=== PATIENT | female | born 1995 | race African-American/Black ===

== ENCOUNTER 2024-01-05 16:26 | Emergency (ER) | payer OTHER, SELFPAY ==
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
[2024-01-05 16:39] VITALS: BP 132/86; PULSE 982; O2SAT 97
[2024-01-05 16:59] VITALS: BP 103/65; BP 130/80; PULSE 66; PULSE 90; RESP 18; TEMP 36.5; O2SAT 97; O2SAT 99; BMI 24.7
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
--- OUTSIDE RECORDS SUMMARY | 2024-01-05 17:41 | XMS_ITS | Continuity of Care Document ---
Author Organization [facility] Address [address] [place] [address]- Care Team Providers Care Digital Marketing Associate Name Role Phone Kee MICHAEL, [facility] Primary Care Physician [facility]counter [facility] Date(s): 07/09/23 - 08/08/23 [facility] [address] [place] [id number]- Allergies, Adverse Reactions, Alerts Substance Reaction Severity Status shellfish Active Immunizations Given and Recorded Vaccine Date Status Refusal Reason influenza virus vaccine, inactivated 07/29/21 Gael rded SARS-CoV-2 (COVID-19) mRNA-1273 vaccine 01/31/21 R ecorded SARS-CoV-2 (COVID-19) mRNA-1273 vaccine 01/03/21 R ecorded tetanus/diphtheria/pertussis, acel(Tdap) 1 11/27/17 Given 1Early/Late Reason: Other : CNM wanted pt to have vaccine after del Medications buPROPion 150 mg/24 hours (XL) oral tablet, extended release 1 tablet, By Mouth, Every 24 hours, # 30 tablet, 0 Refills, Maintenance, 11/20/22 17:03:00 EDT, [id number], 30, TAKE 1 TABLET BY MOUTH EVERY 24 HOURS FOR 30 DAYS, 155.4, cm, 10/28/22 15:29:00 EDT, Height Start Date: 11/20/22 Stop Date: 12/20/22 Status: Ordered ibuprofen 600 mg oral tablet 1, tablet, By Mouth, Every 8 hours, PRN, MODERATE PAIN., # 30 tablet, Refills 1, Maintenance, NEEDED, 07/09/23 12:25:00 EST, Route to Pharmacy Electronically, [id number], 155, cm, 03/23/23 10:56:00 EDT, Height, 63.7, kg, 03/23/23 11:03:00 EDT,... Start Date: 07/09/23 Stop Date: 07/19/23 Status: Ordered 06/28 oral tablet 1 tablet, By Mouth, Daily, # 28 tablet, 0 Refills, Maintenance, 09/24/21 10:03:00 EDT, Tablet, Partial fill upon patient request if the prescription is for a schedule II opioid drug. Start Date: 09/24/21 Status: Ordered Problem List Condition Confirmation Course Effective Dates Status Health St atus Informant Anxiety Confirmed Active Cardiac murmur Confirmed Active Migraine Confirmed Active PMS (premenstrual syndrome) Confirmed Active Social History Social History Type Response Smoking Status Never smoker entered on: 11/23/17 Sex Female Patient Care team information Care Team Personnel Name: Kee MICHAEL, Hailey Position: S Physician - Primary Care Member Role: PCP Address: Address: [address] [place] [address] [address] [place], [place] [address] Care Team Related Persons Name: SHEREE HOOKER Address: home [address] [place] [address] Name: TASIA HOOKER Address: home [address] [place] [address] Name: TAZ PRADO Address: Address: [address] [place] [address]
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
--- OUTSIDE RECORDS SUMMARY | 2024-01-05 17:41 | XMS_ITS | Continuity of Care Document ---
Author Organization [facility] ter Address [address] [place] [address]- Care Team Providers Care Data Communications Analyst Name Role Phone Kee MICHAEL, Hailey Primary Care Physician ( [phone] Encounter [facility] Date(s): 02/18/22 - 02/19/[address] [address]- Encounter Diagnosis Neck muscle strain(Final) - 02/19/22 Discharge Disposition: A-D/C Home Attending Physician: Wilman MICHAEL, Marge Melara Admitting Physician: aMrge Stovall MD Referring Physician: Not on Staff, Referring MD Allergies, Adverse Reactions, Alerts Substance Reaction Severity Status shellfish Active Immunizations Given and Recorded Vaccine Date Status Refusal Reason influenza virus vaccine, inactivated 07/29/21 Gael rded SARS-CoV-2 (COVID-19) mRNA-1273 vaccine 01/31/21 R ecorded SARS-CoV-2 (COVID-19) mRNA-1273 vaccine 01/03/21 R ecorded tetanus/diphtheria/pertussis, acel(Tdap) 1 11/27/17 Given 1Early/Late Reason: Other : CNM wanted pt to have vaccine after del Medications 06/28 oral tablet 1 tablet, By Mouth, Daily, # 28 tablet, 0 Refills, Maintenance, 09/24/21 10:03:00 EDT, Tablet, Partial fill upon patient request if the prescription is for a schedule II opioid drug. Start Date: 09/24/21 Status: Ordered lidocaine 5% topical film 1 patch, Topically, Daily, PRN Pain , Mild, remove after 12 hours, # 13 each, 0 Refills, Acute 06/08/22 1:07:00 EST, 02/19/22 1:06:00 EDT, Film, [id number], Partial fill upon patient request if the prescription is for a schedule II opioid drug... Start Date: 02/19/22 Stop Date: 06/08/22 Status: Ordered Problem List Condition Effective Dates Status Health Status Inform ant Anxiety(Confirmed) Active Cardiac murmur(Confirmed) Active Migraine(Confirmed) Active PMS (premenstrual syndrome)(Confirmed) Active Vital Signs Most recent to oldest [Reference Range]: 1 2 3 Oxygen Saturation [94-100 %] 98 % (02/19/22 12:17 AM) 100 % (02/18/22 10:27 PM) 100 % (02/18/22 7:04 PM) Pulse Rate [55-90 bpm] 62 bpm (02/19/22 12:17 AM) 69 bpm (02/18/22 10:27 PM) 64 bpm (02/18/22 7:04 PM) Blood Pressure [90-138/55-84 mm Hg] 109/61mm Hg (02/19/22 12:17 AM) 127/72mm Hg (02/18/22 10:27 PM) 127/74mm Hg (02/18/22 7:04 PM) Respiratory Rate [16-30 br/min] 16 br/min (02/19/22 12:17 AM) 18 br/min (02/18/22 10:27 PM) 20 br/min (02/18/22 1:16 PM) Temperature [96.8-100.4 DegF] 98.6 DegF (02/19/22 12:17 AM) 98.2 DegF (02/18/22 10:27 PM) 98.4 DegF (02/18/22 7:04 PM) Mode of Delivery (Oxygen) Room air (02/19/22 12:17 AM) Room air (02/18/22 10:27 PM) Room air (02/18/22 7:04 PM) Blood pressure sites Arm, right (02/19/22 12:17 AM) Arm, right (02/18/22 10:27 PM) Arm, left (02/18/22 7:04 PM) Temperature Route Oral (02/18/22 10:27 PM) Oral (02/18/22 7:04 PM) Oral (02/18/22 5:57 PM) Social History Social History Type Response Smoking Status Never smoker entered on: 11/23/17 Sex Female Care Team Personnel Name: Hailey Sweet MD Address: [address] [place] [address] [address] [place], [place] [address]
--- OUTSIDE RECORDS SUMMARY | 2024-01-05 17:41 | XMS_ITS | Continuity of Care Document ---
Author Organization [facility] ter Address [address] [place] [address]- Care Team Providers Care Renovation Plant Supervisor Name Role Phone Kee MICHAEL, [facility] Primary Care Physician ( [phone] Encounter [facility] Date(s): 02/18/22 - 02/18/[address] [address]- Discharge Disposition: A-D/C Walkout Attending Physician: Not on Staff, Attending MD Admitting Physician: Not on Staff, Admitting MD Referring Physician: Not on Staff, Referring [...] 1:07:00 EST, 02/19/22 1:06:00 EDT, Film, [id number], Partial fill upon patient request if the prescription is for a schedule II opioid drug... Start Date: 02/19/22 Stop Date: 06/08/22 Status: Ordered Problem List Condition Effective Dates Status Health Status Inform ant Anxiety(Confirmed) Active Cardiac murmur(Confirmed) Active Migraine(Confirmed) Active PMS (premenstrual syndrome)(Confirmed) Active Vital Signs Most recent to oldest [Reference Range]: 1 Oxygen Saturation [94-100 %] 100 % (02/18/22 11:07 AM) Pulse Rate [55-90 bpm] 105 bpm *H* (02/18/22 11:07 AM) Mode of Delivery (Oxygen) Room air (02/18/22 11:07 AM) Social History Social History Type Response Smoking Status Never smoker entered on: 11/23/17 Sex Female Care Team Personnel Name: Kee MICHAEL [facility] Address: [address] [place] [address] [address] [place], [place] [address]
--- OUTSIDE RECORDS SUMMARY | 2024-01-05 17:41 | XMS_ITS | Continuity of Care Document ---
Author Organization [facility] Adult Address [address] [place] [address]- Care Team Providers Care Sheet Metal Smith Name Role Phone Kee MICHAEL, Hailey Primary Care Physician ( [phone] Encounter [facility] Date(s): 10/11/22 - 10/18/[address] [address]- Encounter Diagnosis Annual physical exam(Discharge Diagnosis) - 10/11/22 Mild depression(Discharge Diagnosis) - 10/11/22 Attending Physician: Hailey Sweet MD Allergies, Adverse Reactions, Alerts Substance Reaction Severity Status shellfish Active Immunizations Given and Recorded Vaccine Date Status Refusal Reason influenza virus vaccine, inactivated 07/29/21 Gael rded SARS-CoV-2 (COVID-19) mRNA-1273 vaccine 01/31/21 R ecorded SARS-CoV-2 (COVID-19) mRNA-1273 vaccine 01/03/21 R ecorded tetanus/diphtheria/pertussis, acel(Tdap) 1 11/27/17 Given 1Early/Late Reason: Other : CNM wanted pt to have vaccine after del Medications ibuprofen 600 mg oral tablet 600 mg, 1, tablet, By Mouth, Every 8 hours, PRN, for 10 days, # 30 tablet, Refills 1, Tot. Refills 1, Acute 10/31/22 10:50:00 EDT, Pain , Moderate, 10/11/22 10:50:00 EDT, Route to Pharmacy Electronically, [facility]/pharmacy #[id number], Partial fill upon patient... Start Date: 10/11/22 Stop Date: 10/31/22 Status: Ordered 06/28 oral tablet 1 tablet, [...] Diagnosis Diagnosis Type Effective Dates Health Status Clinical Service Informant Annual physical exam Discharge Diagnosis 10/11/22 Mild depression Discharge Diagnosis 10/11/22 Vital Signs Most recent to oldest [Reference Range]: 1 Height 155.4 cm (10/11/22 10:16 AM) Weight 61.2 kg (10/11/22 10:16 AM) Oxygen Saturation [94-100 %] 99 % (10/11/22 10:16 AM) Pulse Rate [55-90 bpm] 84 bpm (10/11/22 10:16 AM) Body Mass Index [18.5-24.99 kg/m2] 25.34 kg/m2 *H* (10/11/22 10:16 AM) Blood Pressure [90-138/55-84 mm Hg] 96/6 4mm Hg (10/11/22 10:16 AM) Temperature [96.8-100.4 DegF] 97.6 DegF (10/11/22 10:16 AM) Mode of Delivery (Oxygen) Room air (10/11/22 10:16 AM) Blood pressure sites Arm, left (10/11/22 10:16 AM) Temperature Route Temporal (10/11/22 10:16 AM) Weight Obtained Via Standing scale (10/11/22 10:16 AM) Social History Social History Type Response Smoking Status Never smoker entered on: 11/23/17 Sex Female Note * Mabel Shepard: PERFORM, SIGN, VERIFY Event Display: Patient Education/Instruction Authored Date: [id number] [facility] *[facility] Clinical Summary Name MYRA COATES Age 26 Years 1995 PCP Hailey Sweet MD PCP Visit Date 10/11/2022 10:07:00 Additional Instructions: Scheduled Appointments?? Future Appointments ?No Future Appointments Scheduled Follow-Up Instructions ?? With: Address: When: Hailey Sweet [address] Floor, [place] [address] Business (1) Within 1 year Comments: physical Diagnosis Anxiety disorder, unspecified; Migraine, unspecified, not intractable, without status migrainosus; Premenstrual tension syndrome; Encounter for general adult medical examination without abnormal findings; Depression, unspecified Medications: Please continue your medications until treatment is completed or stopped by your provider. Discuss any questions related to medications with your provider. New Medications [facility]/pharmacy #[id number], [address] [place], [place] [phone], [phone] Ibuprofen (ibuprofen 600 mg oral tablet) 1 tab(s) Oral every 8 hours as needed Pain , Moderate for 10 Days. Refills: 1. Next Dose: Medications to Continue with No Changes These medications were not printed or sent to your pharmacy Ethinyl Estradiol / Norethindrone (06/28 oral tablet) 1 tab(s) Oral Daily. Next Dose: Allergy Info:?? shellfish Medications Given This Visit Future Orders ?Lipid Panel? Order Date:10/11/22?- Complete by?10/11/22 ?Hepatic Function Panel? Order Date:10/11/22?- Complete by?10/11/22 ?Basic Metabolic Panel? Order Date:10/11/22?- Complete by?10/11/22 ?TSH with T4 Reflex (Adults Only)? Order Date:10/11/22?- Complete by?10/11/22 ?CBC w/ Differential? Order Date:10/11/22?- Complete by?10/11/22 ?Urinalysis (Outpt)? Order Date:10/11/22?- Complete by?10/11/22 Vital Signs Height 155.4 cm Weight 61.2 kg BMI 25.34 kg/m2 Blood Pressure 96 mm Hg/64 mm Hg Temperature 97.6 DegF Pulse Rate 84 bpm Respiratory Rate 02 Sat Mode of Delivery 99 %/Room air You can now view a summary of your hospital visit from the comfort of your home through a free online portal called [employer]. [employer] is a website that allows you to securely view your medical information including discharge summary, medications and follow-up visits. ??You can alsosend a secure electronic message to your doctor???s office to request appointments, renew medications or just ask a question. You can enroll at [email or web address] or register during your next office visit. Disclaimer:?? The information provided is of a general nature and is intended to be used in conjunction with the recommendations and advice of your health care practitioner. ??Every effort has been made to ensure that the information provided is accurate and complete at the time it is provided to you however, as your needs change, or, as new ??information becomes available, different or additional instructions may be required. If you have questions, please consult with your primary care provider or pharmacist, as appropriate. ??This information is not intended to serve as substitution for assessment and evaluation by a qualified health care provider. If you do not have a primary care provider, you may find a [facility] provider by calling [facility] Link at [phone]. For information about the plan of care including goals and instructions for your diagnosis, please see the patient education orders section of this document. Patient Education Materials?? The content of this educational material or handout may have been modified, supplemented, or adapted from its original content and format to support your individualized medical care. Patient Care team information Care Team Personnel Name: Chastity Moran LPN Position: [facility] OB RN Member Role: Primary Care Nurse Name: Hailey Sweet MD Position: [facility] Primary Care Physician Member Role: PCP Address: Address: [address] [place] [address] [address]rd [address] [place], [place] [address] Care Team Related Persons Name: HOOKERSHEREE Address: home [address] [place] [address] Name: TASIA HOOKER Address: home [address] [place] [address] Name: TZA PRADO Address: Address: home [address] [place] [address]
--- OUTSIDE RECORDS SUMMARY | 2024-01-05 17:41 | XMS_ITS | Continuity of Care Document ---
Author Organization [facility] Adult Address [address] [place] [address]- Care Team Providers Care Night Monitor Name Role Phone Kee MICHAEL, Hailey Primary Care Physician ( [phone] Encounter [facility] Date(s): 11/29/22 - 12/29/[address] [address]- Attending Physician: Linda Flores Admitting Physician: AdmLinda bae Referring Physician: Admtr, Linda Allergies, Adverse Reactions, Alerts Substance Reaction Severity [...] 0 Refills, Maintenance, 11/20/22 17:03:00 EDT, [id number], 30, TAKE 1 TABLET BY MOUTH EVERY 24 HOURS FOR 30 DAYS, 155.4, cm, 10/28/22 15:29:00 EDT, Height Start Date: 11/20/22 Stop Date: 12/20/22 Status: Ordered June06/28 oral tablet 1 tablet, By Mouth, Daily, [...] Team Personnel Name: Chastity Moran LPN Position: [facility] OB RN Member Role: Primary Care Nurse Name: Hailey Sweet MD Position: [facility] Physician - Primary Care Member Role: PCP Address: Address: [address] [place] [address] Care Team Related Persons Name: SHEREE HOOKER Address: home [address] [place] [address] Name: TASIA HOOKER Address: home [address] [place] [address] Name: TAZ PRADO Address: Address: [address] [address] [place]
--- OUTSIDE RECORDS SUMMARY | 2024-01-05 17:41 | XMS_ITS | Continuity of Care Document ---
Author Organization [facility] Adult Address [address] [place] [address]- Care Team Providers Care Photographer Portrait Name Role Phone Kee MICHAEL, [facility] Primary Care Physician Encounter [facility] Date(s): 11/28/21 - 12/28/21 [facility] Adult [address] [place] [address]- Allergies, Adverse Reactions, Alerts Substance Reaction Severity [...] Date: 09/24/21 Status: Ordered Problem List Condition Effective Dates Status Health Status Inform ant Anxiety(Confirmed) Active Cardiac murmur(Confirmed) Active Migraine(Confirmed) Active PMS (premenstrual syndrome)(Confirmed) Active Social History Social History Type Response Smoking Status Never smoker entered on: 11/23/17 Sex Female
--- OUTSIDE RECORDS SUMMARY | 2024-01-05 17:41 | XMS_ITS | Continuity of Care Document ---
Author Organization [facility] Address [address] [place] [address]- Care Team Providers Care Corporate Strategist Name Role Phone Not on Staff, PCP Primary Care Physician Unavail able [place] [facility] Date(s[place] 05/28/20 - 05/28/[address] [address]- Encounter Diagnosis Syncope(Final) - 05/28/20 Discharge Disposition: A-D/C Home Attending Physician: Christopher Swanson DO Admitting Physician: Christopher Swanson DO Referring Physician: Not on Staff, Referring MD Allergies, Adverse Reactions, Alerts Substance Reaction Severity Status shellfish Active Immunizations Given and Recorded Vaccine Date Status Refusal Reason tetanus/diphtheria/pertussis, acel(Tdap) 1 11/27/17 Given 1Early/Late Reason: Other : CNM wanted pt to have vaccine after del Medications Multivitamin Tablet 1 tablet, By Mouth, Daily, 0 Refills, Maintenance, 07/09/17 15:34:03 Start Date: 07/09/17 Status: Ordered Zofran 4 mg oral tablet 1 tablet = 4 mg, By Mouth, Every 8 hours, 0 Refills, Maintenance, 07/09/17 15:33:18 Start Date: 07/09/17 Status: Ordered Problem List Condition Effective Dates Status Health Status Inform ant Anxiety(Confirmed) Active Vital Signs Most recent to oldest [Reference Range]: 1 2 3 Oxygen Saturation [94-100 %] 100 % (05/28/20 3:17 PM) 100 % (05/28/20 1:28 PM) 98 % (05/28/20 1:11 PM) Pulse Rate [55-90 bpm] 64 bpm (05/28/20 3:17 PM) 55 bpm (05/28/20 1:28 PM) 76 bpm (05/28/20 1:11 PM) Blood Pressure [90-138/55-84 mm Hg] 96/44mm Hg (05/28/20 3:17 PM) 96/62mm Hg (05/28/20 1:28 PM) 96/62mm Hg (05/28/20 1:11 PM) Respiratory Rate [16-30 br/min] 16 br/min (05/28/20 3:17 PM) 14 br/min *L* (05/28/20 1:28 PM) 16 br/min (05/28/20 1:11 PM) Temperature [96.8-100.4 DegF] 98.2 DegF (05/28/20 1:11 PM) 98.1 DegF (05/28/20 12:59 PM) Mode of Delivery (Oxygen) Room air (05/28/20 3:17 PM) Room air (05/28/20 1:28 PM) Room air (05/28/20 1:11 PM) Blood pressure sites Arm, left (05/28/20 3:17 PM) Arm, left (05/28/20 1:28 PM) Arm, left (05/28/20 1:11 PM) Temperature Route Oral (05/28/20 12:59 PM) Social History Social History Type Response Smoking Status Never smoker entered on: 11/23/17 Sex
--- OUTSIDE RECORDS SUMMARY | 2024-01-05 17:41 | XMS_ITS | Continuity of Care Document ---
Author Organization [facility] Adult Address [address] [place] [address]- Care Team Providers Care Mathematics Professor Name Role Phone Hailey Sweet MD Primary Care Physician ( [phone] Encounter [facility] Date(s): 09/17/23 - 09/24/[address] [address]- Encounter Diagnosis YOLY (generalized anxiety disorder)(Discharge Diagnosis) - 09/17/23 Attending Physician: Hailey Sweet MD Referring Physician: Pilar Da Silva NP Allergies, Adverse Reactions, Alerts Substance Reaction Severity [...] Medications hydrOXYzine pamoate 25 mg oral capsule 1 capsule = 25 mg, By Mouth, 4 times a day, PRN for anxiety, for 14 days, May cause drowsiness, # 56 capsule, 0 Refills, Acute 10/01/23 14:07:00 EDT, 09/17/23 14:07:00 EDT, Capsule, [id number], Partial fill upon patient request if the prescrip... Start Date: 09/17/23 Stop Date: 10/01/23 Status: Ordered ibuprofen 600 mg oral tablet 1, tablet, By Mouth, Every 8 hours, PRN, MODERATE PAIN., # 30 tablet, Refills 1, Maintenance, NEEDED, 07/09/23 12:25:00 EST, Route to Pharmacy Electronically, [id number], 155, cm, 03/23/23 10:56:00 EDT, Height, 63.7, kg, 03/23/23 11:03:00 EDT,... Start Date: 07/09/23 Stop Date: 07/19/23 Status: Ordered Problem List Condition Confirmation Course Effective Dates Status Health St atus Informant Anxiety Confirmed Active Cardiac murmur Confirmed Active Migraine Confirmed Active PMS (premenstrual syndrome) Confirmed Active Diagnosis Diagnosis Type Effective Dates Health Status Cl inical Service Informant YOLY (generalized anxiety disorder) Discharge Diagnosis 09/17/23 Vital Signs Most recent to oldest [Reference Range]: 1 Height 155 cm (09/17/23 1:43 PM) Weight 64.1 kg (09/17/23 1:43 PM) Oxygen Saturation [94-100 %] 100 % (09/17/23 1:43 PM) Pulse Rate [55-90 bpm] 62 bpm (09/17/23 1:43 PM) Body Mass Index [18.5-24.99 kg/m2] 26.68 kg/m2 *H* (09/17/23 1:43 PM) Blood Pressure [90-138/55-84 mm Hg] 106/ 70mm Hg (09/17/23 1:43 PM) Mode of Delivery (Oxygen) Room air (09/17/23 1:43 PM) Blood pressure sites Arm, left (09/17/23 1:43 PM) Weight Obtained Via Standing scale (09/17/23 1:43 PM) Social History Social History Type Response Smoking Status Never smoker entered on: 11/23/17 Sex Female Note * Jennifer Bishop: PERFORM, SIGN, VERIFY Event Display: Patient Education/Instruction Authored Date: [id number] [facility] *[facility] Clinical Summary Name MYRA COATES Age 27 Years 1995 PCP Hailey Sweet MD PCP Visit Date 09/17/2023 13:42:00 Additional Instructions: Scheduled Appointments?? Future Appointments ?*[facility] ?[address],??[address] ?Phone:??[phone]?Fax:??-- ?Appt. Date:??11/12/2023?11:10 AM ?Scheduled Provider:??Hailey Sweet MD Follow-Up Instructions ?? With: Address: When: Hailey Sweet MD Diagnosis Generalized anxiety disorder Medications: Please continue your medications until treatment is completed or stopped by your provider. Discuss any questions related to medications with your provider. New Medications [facility]/pharmacy #[id number], [address] [place], [place] [phone], [phone] HydrOXYzine (hydrOXYzine pamoate 25 mg oral capsule) 1 capsule Oral 4 times a day as needed for anxiety for 14 Days. May cause drowsiness. Refills: 0. Next Dose: Medications to Continue with No Changes These medications were not printed or sent to your pharmacy Ibuprofen (ibuprofen 600 mg oral tablet) 1 tab(s) Oral every 8 hours as needed for 10 Days. MODERATE PAIN.. Refills: 1. Next Dose: No Longer Take the Following Medications BuPROpion (buPROPion 150 mg/24 hours (XL) oral tablet, extended release) 1 tab(s) Oral every 24 hours for 30 Days. Refills: 0. Ethinyl Estradiol / Norethindrone (06/28 oral tablet) 1 tab(s) Oral Daily. Allergy Info:?? shellfish Medications Given This Visit Future Orders ?No future orders Future Orders ?No future orders Vital Signs Height 155 cm Weight 64.1 kg BMI 26.68 kg/m2 Blood Pressure 106 mm Hg/70 mm Hg Temperature Pulse Rate 62 bpm Respiratory Rate 02 Sat Mode of Delivery 100 %/Room air You can now view a summary of your hospital visit from the comfort of your home through a free online portal called [employer]. [employer] is a website that allows you to securely view your medical information including discharge summary, medications and follow-up visits. ??You can alsosend a secure electronic message to your doctor???s office to request appointments, renew medications or just ask a question. You can enroll at [email or web address] or register during your next office visit. [...] primary care provider, you may find a [facility] provider by calling [facility] Link at [phone]. [facility], in keeping with [facility] guidance, no longer requires face masks for staff, patientsor visitors in most situations. Similar to time spent indoors at other locations, there is the chance that you were exposed to respiratory viruses during your time with us (such as flu or COVID-19).? If you develop symptoms concerning for a viral respiratory infection, please seek testing (and treatment if indicated) from your medical provider or home test kit. For information about the plan of care [...] Team Personnel Name: Hailey Sweet MD Position: S Physician - Primary Care Member Role: PCP Address: Address: [address] Care Team Related Persons Name: SHEREE HOOKER Address: home [address] [place] [address] Name: TASIA HOOKER Address: home [address] [place] [address] Name: TAZ PRADO Address: Address: home [address] [place] [address]
--- OUTSIDE RECORDS SUMMARY | 2024-01-05 17:41 | XMS_ITS | Continuity of Care Document ---
Author Organization [facility] Adult Address [address] [place] [address]- Care Team Providers Care Diamond Sawer Name Role Phone Kee MICHAEL, Hailey Primary Care Physician En[place] [facility] [place] Date(s): 09/17/23 - 10/17/[address] [address]- Attending Physician: Linda Flores Admitting Physician: Linda Flores Referring Physician: Linda Flores Allergies, Adverse Reactions, Alerts Substance Reaction Severity [...] del Medications ibuprofen 600 mg oral tablet 1, tablet, By Mouth, Every 8 hours, PRN, MODERATE PAIN., # 30 tablet, Refills 1, Maintenance, NEEDED, 07/09/23 12:25:00 EST, Route to Pharmacy Electronically, [facility], 155, cm, 03/23/23 10:56:00 EDT, Height, 63.7, [...] Care Member Role: PCP Address: Address: [address] [place] [address] [address] Care Team Related Persons Name: SHEREE HOOKER Address: home [address] [place] [address] Name: TASIA HOOKER Address: home [address] [place] [address] Name: TAZ PRADO Address: Address: [address]
--- OUTSIDE RECORDS SUMMARY | 2024-01-05 17:41 | XMS_ITS | Continuity of Care Document ---
Author Organization [facility] Adult Address [address] [place] [address]- Care Team Providers Care Mechanical Assembly Technician Name Role Phone Kee MICHAEL, [facility] Primary Care Physician Encounter [facility] Date(s): 11/28/21 - 12/28/21 [facility] Adult [address] [place] [address]- Allergies, Adverse Reactions, Alerts Substance Reaction Severity [...]
--- OUTSIDE RECORDS SUMMARY | 2024-01-05 17:41 | XMS_ITS | Continuity of Care Document ---
Author Organization [facility] Adult Address [address] [place] [address]- Care Team Providers Care Tour Coordinator Name Role Phone Kee MICHAEL, [facility] Primary Care Physician ( [phone] Encounter [facility] Date(s): 09/24/21 - 10/01/[address] [facility] Adult [address] [place] [address]- Encounter Diagnosis Migraine(Discharge Diagnosis) - 09/24/21 Cardiac murmur(Discharge Diagnosis) - 09/24/21 Annual physical exam(Discharge Diagnosis) - 09/24/21 PMS (premenstrual syndrome)(Discharge Diagnosis) - 09/24/21 Attending Physician: [facility]ee [facility] Allergies, Adverse Reactions, Alerts Substance Reaction Severity [...] opioid drug. Start Date: 09/24/21 Status: Ordered SUMAtriptan 25 mg oral tablet 1 tablet = 25 mg, By Mouth, Daily, PRN for migraine headache, may repeat dose after 2 hours up to amaximum of 2, # 9 tablet, 0 Refills, Acute 10/24/21 10:25:00 EDT, 09/24/21 10:25:00 EDT, Tablet, [id number], [facility] fill upon patient request... Start Date: 09/24/21 Stop Date: 10/24/21 Status: Ordered Problem List Condition Effective Dates Status Health Status Inform ant Anxiety(Confirmed) Active Cardiac murmur(Confirmed) Active Migraine(Confirmed) Active PMS (premenstrual syndrome)(Confirmed) Active Diagnosis Diagnosis Type Effective Dates Health Status Cl inical Service Informant Migraine Discharge Diagnosis 09/24/21 Cardiac murmur Discharge Diagnosis 09/24/21 Annual physical exam Discharge Diagnosis 09/24/21 PMS (premenstrual syndrome) Discharge Diagnosis 09/24/21 Procedures Procedure Date Related Diagnosis Body Site Status Vaginal delivery Complete d Vital Signs Most recent to oldest [Reference Range]: 1 2 Height 155.4 cm (09/25/21 10:20 AM) 155.4 cm (09/24/21 9:37 AM) Weight 59.6 kg (09/25/21 10:20 AM) 59.6 kg (09/24/21 9:37 AM) Oxygen Saturation [94-100 %] 99 % (09/24/21 9:37 AM) Pulse Rate [55-90 bpm] 63 bpm (09/24/21 9:37 AM) Body Mass Index [18.5-24.99] 24.68 (09/24/21 9:37 AM) Blood Pressure [90-138/55-84 mm Hg] 98/6 2mm Hg (09/24/21 9:37 AM) Temperature [96.8-100.4 DegF] 98.5 DegF (09/24/21 9:37 AM) Mode of Delivery (Oxygen) Room air (09/24/21 9:37 AM) Blood pressure sites Arm, left (09/24/21 9:37 AM) Temperature Route Oral (09/24/21 9:37 AM) Weight Obtained Via Standing scale (09/24/21 9:37 AM) Social History Social History Type Response Smoking Status Never smoker entered on: 11/23/17 Sex Female
--- OUTSIDE RECORDS SUMMARY | 2024-01-05 17:42 | XMS_ITS | Continuity of Care Document ---
Author Organization [facility] Adult Address [address] [place] [address]- Care Team Providers Care Superintendent Refuse Disposal Name Role Phone Hailey Sweet MD Primary Care Physician [place] [facility] [place] [place]13[place]23 [place] 12/13/23 [facility] Adult [address] [place] [address]- Attending Physician: Linda Flores Admitting Physician: Linda Flores Referring Physician: AdmLinda bae Allergies, Adverse Reactions, Alerts Substance Reaction Severity [...] 07/09/23 12:25:00 EST, Route to Pharmacy Electronically, [id number], 155, cm, 03/23/23 10:56:00 EDT, Height, 63.7, [...] Team Personnel Name: Hailey Sweet MD Position: [facility] Physician - Primary Care Member Role: PCP Address: Address: [address] [place] [address] [address]rd [address] [place], [place] [address] Care Team Related Persons Name: SHEREE HOOKER Address: home [address] [place] [address] Name: TASIA HOOKER Address: home [address] [place] [address] Name: TAZ PRADO Address: Address: home [address] [place] [address] [place]
--- OUTSIDE RECORDS SUMMARY | 2024-01-05 17:42 | XMS_ITS | Continuity of Care Document ---
Author Organization [facility] [place] Adult Address [address] [place] [address]- Care Team Providers Care Skin Peeling Machine Operator Name Role Phone Hailey Sweet MD Primary Care Physician ( [phone] Encounter [facility] [place] [place] Date(s): 10/24/22 - 12/29/[address] [address]- Attending Physician: Hailey Sweet MD Allergies, Adverse [...] 0 Refills, Maintenance, 11/20/22 17:03:00 EDT, [facility], 30, TAKE 1 TABLET BY MOUTH EVERY 24 HOURS FOR 30 DAYS, 155.4, cm, 10/28/22 15:29:00 EDT, Height Start Date: 11/20/22 Stop Date: 12/20/22 Status: Ordered 06/28 oral tablet 1 tablet, [...] Team Personnel Name: Chastity Moran LPN Position: [facility] OB RN Member Role: Primary Care Nurse Name: Hailey Sweet MD Position: [facility] Physician - Primary Care Member Role: PCP Address: Address: [address] [place] [address] Care Team Related Persons Name: SHEREE HOOKER Address: home [address] [place] [address] Name: TASIA HOOKER Address: home [address] [place] [address] Name: TAZ PRADO Address: Address: home [address] [place] [address]
--- OUTSIDE RECORDS SUMMARY | 2024-01-05 17:42 | XMS_ITS | Continuity of Care Document ---
Author Organization [facility] Adult Address [address] [place] [address]- Care Team Providers Care Cascara Bark Cutter Name Role Phone Not on Staff, PCP Primary Care Physician Unavail able Encounter [facility] Date(s): 06/26/21 - 07/26/21 [facility] [address] [place] [address]- Allergies, Adverse Reactions, Alerts Substance Reaction Severity [...] Status Health Status Inform ant Anxiety(Confirmed) Active Social History Social History Type Response Smoking Status Never smoker entered on: 11/23/17 Sex Female
--- OUTSIDE RECORDS SUMMARY | 2024-01-05 17:42 | XMS_ITS | Continuity of Care Document ---
Author Organization [facility] ter Address [address] [place] [address]- Care Team Providers Care Road Patcher Name Role Phone Not on Staff, PCP Primary Care Physician Unavail able Encounter [facility] [place] Date(s): 01/15/20 - 01/15/[address] [address]- [facility] Encounter Diagnosis Syncope(Final) - 01/15/20 Discharge Disposition: A-D/C Home Attending Physician: Christopher [...] recent to oldest [Reference Range]: 1 2 Oxygen Saturation [94-100 %] 99 % (01/15/20 10:53 PM) 100 % (01/15/20 8:04 PM) Pulse Rate [55-90 bpm] 54 bpm *L* (01/15/20 10:53 PM) 62 bpm (01/15/20 8:04 PM) Blood Pressure [90-138/55-84 mm Hg] 94/4 7mm Hg 1 (01/15/20 10:53 PM) 95/63mm Hg (8/8/20 8:04 PM) Respiratory Rate [16-30 br/min] 18 br/mi n (01/15/20 10:53 PM) 16 br/min (01/15/20 8:04 PM) Temperature [96.8-100.4 DegF] 97.7 DegF (01/15/20 10:53 PM) 98.4 DegF (01/15/20 8:04 PM) Mode of Delivery (Oxygen) Room air (01/15/20 10:53 PM) Room air (01/15/20 8:04 PM) Blood pressure sites Arm, left (01/15/20 10:53 PM) Arm, left (01/15/20 8:04 PM) Temperature Route Oral (01/15/20 10:53 PM) Oral (01/15/20 8:04 PM) 1Result Comment: DO Sky made aware Social History Social History Type Response Smoking Status Never smoker entered on: 11/23/17 Sex
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
--- OUTSIDE RECORDS SUMMARY | 2024-01-05 17:42 | XMS_ITS | Continuity of Care Document ---
Author Organization [facility] Adult Address [address] [place] [address]- Care Team Providers Care Retort Kiln Burner Name Role Phone Hailey Sweet MD Primary Care Physician Encounter [facility] [place] Date(s): 10/28/22 - 11/04/22 [facility] Adult [address] [place] [address]- Encounter Diagnosis Anxiety(Discharge Diagnosis) - 10/28/22 Attending Physician: Hailey Sweet MD Allergies, Adverse [...] opioid drug. Start Date: 09/24/21 Status: Ordered Wellbutrin XL 150 mg/24 hours oral tablet, extended release 1 tablet = 150 mg, By Mouth, Every 24 hours, # 30 tablet, 0 Refills, Maintenance, 10/28/22 17:12:00EDT, ER Tablet, [id number], Partial fill upon patient request if the prescription is for a schedule II opioid drug., 155.4, cm, 10/28/22 15:29:... Start Date: 10/28/22 Stop Date: 11/27/22 Status: Ordered Problem List Condition Confirmation Course Effective Dates Status Health St [facility]us Informant Anxiety Confirmed Active Cardiac murmur Confirmed Active Migraine Confirmed Active PMS (premenstrual syndrome) Confirmed Active Diagnosis Diagnosis Type Effective Dates Health Status [facility] Informant Anxiety Discharge Diagnosis 10/28/22 Vital Signs Most recent to oldest [Reference Range]: 1 Height 155.4 cm (10/28/22 3:29 PM) Social History Social History Type Response Smoking Status Never smoker entered on: 11/23/17 Sex Female Patient Care team information Care Team Personnel Name: Chastity Moran LPN Position: [facility] OB RN Member Role: Primary Care Nurse Name: Hailey Sweet MD Position: [facility] Physician - Primary Care Member Role: PCP Address: Address: [address] [place] [address] [address] [place] [address]- Care Team Related Persons Name: SHEREE HOOKER Address: home [address] [place] [address] Name: TASIA HOOKER Address: home [address] [place] [address] Name: TAZ PRADO Address: Address: [address] [address] [place]
--- OUTSIDE RECORDS SUMMARY | 2024-01-05 17:42 | XMS_ITS | Continuity of Care Document ---
Author Organization [facility] Adult Address [address] [place] [address]- Care Team Providers Care Public Relations Representative Name Role Phone Kee MICHAEL, [facility] Primary Care Physician Encounter [facility] Date(s): 10/21/22 - 11/20/22 [facility] Adult [address] [place] [address]- Allergies, Adverse Reactions, Alerts Substance Reaction Severity [...] 0 Refills, Maintenance, 11/20/22 17:03:00 EDT, [facility], 30, TAKE 1 TABLET BY MOUTH EVERY [...] Team Personnel Name: Chastity Moran LPN Position: [facility] OB RN Member Role: Primary Care Nurse Name: Hailey Sweet MD Position: [facility] Physician - Primary Care Member Role: PCP Address: Address: [address] [place] [address] [address] [place], [place] [address] Care Team Related Persons Name: SHEREE HOOKER Address: home [address] [place] [address] Name: TASIA HOOKER Address: home [address] [place] [address] Name: TAZ PRADO Address: Address: [address] [address] [place]
--- OUTSIDE RECORDS SUMMARY | 2024-01-05 17:42 | XMS_ITS | Continuity of Care Document ---
Author Organization [facility] Adult Address [address] [place] [address]- Care Team Providers Care Building Operator Name Role Phone Kee MICHAEL, [facility] Primary Care Physician [place] [facility] [place] 07/08[place]23 - 08/07/23 [facility] Adult [address] [place] [address]- Allergies, Adverse Reactions, Alerts Substance Reaction Severity [...] 0 Refills, Maintenance, 11/20/22 17:03:00 EDT, [facility], 30, TAKE 1 TABLET BY MOUTH EVERY 24 HOURS FOR 30 DAYS, 155.4, cm, 10/28/22 15:29:00 EDT, Height Start Date: 11/20/22 Stop Date: 12/20/22 Status: Ordered ibuprofen 600 mg oral tablet 1, tablet, By Mouth, Every 8 hours, PRN, MODERATE PAIN., # 30 tablet, Refills 1, Maintenance, NEEDED, 07/09/23 12:25:00 EST, Route to [facility]acy Electronically, [id number], 155, cm, 03/23/23 10:56:00 EDT, Height, 63.7, [...] Care Member Role: PCP Address: Address: [address] [place] [address] [address] [place], [place] [address] Care Team Related Persons Name: SHEREE HOOKER Address: home [address] [place] [address] Name: TASIA HOOKER Address: home [address] [place] [address] Name: TAZ PRADO Address: Address: home [address] [place] [address]
--- OUTSIDE RECORDS SUMMARY | 2024-01-05 17:42 | XMS_ITS | Continuity of Care Document ---
Author Organization [facility] ter Address [address] [place] [address]- Care Team Providers Care Specialty Person Name Role Phone Not on Staff, PCP Primary Care Physician Unavail able Encounter [facility] [place] Date(s): 01/09/20 - 01/09/[address] [address]- [facility] Discharge Disposition: A-D/C Walkout Attending Physician: Not [...] 1 Oxygen Saturation [94-100 %] 100 % (01/09/20 11:37 PM) Pulse Rate [55-90 bpm] 53 bpm *L* (01/09/20 11:37 PM) Blood Pressure [90-138/55-84 mm Hg] 98/5 3mm Hg (01/09/20 11:37 PM) Respiratory Rate [16-30 br/min] 18 br/mi n (01/09/20 11:37 PM) Temperature [96.8-100.4 DegF] 97.6 DegF (01/09/20 11:37 PM) Mode of Delivery (Oxygen) Room air (01/09/20 11:37 PM) Blood pressure sites Arm, right (01/09/20 11:37 PM) Temperature Route Oral (01/09/20 11:37 PM) Social History Social History Type Response Smoking Status Never smoker entered on: 11/23/17 Sex
--- OUTSIDE RECORDS SUMMARY | 2024-01-05 17:42 | XMS_ITS | Continuity of Care Document ---
Author Organization [facility] Address [address] [place] [address]- Care Team Providers Care Medical Office Technologist Name Role Phone Kee MICHAEL, [facility] Primary Care Physician Encounter [facility] Date(s): 10/28/22 - 11/27/22 [facility] [address] [place] [address]- Attending Physician: Linda Flores Admitting Physician: Linda Flores Referring Physician: AdmtrLinda Allergies, Adverse Reactions, Alerts Substance Reaction Severity [...] 0 Refills, Maintenance, 11/20/22 17:03:00 EDT, [facility], 30, TAKE 1 TABLET BY MOUTH EVERY [...] Team Personnel Name: Chastity Moran LPN Position: [facility] OB RN Member Role: Primary Care Nurse Name: Hailey Sweet MD Position: [facility] Physician - Primary Care Member Role: PCP Address: Address: [address] [place] [address] Care Team Related Persons Name: SHEREE HOOKER Address: home [address] [place] [address] Name: TASIA HOOKER Address: home [address] [place] [address] Name: TAZ PRADO Address: Address: [address] [address] [place]
[2024-01-05 18:57] VITALS: BP 102/55; PULSE 70; RESP 18; TEMP 36.5; O2SAT 99
== END 2024-01-05 18:58 | disposition home or self-care (01) ==
PROVIDERS: Emergency Provider Emergency Medicine; PCP Internal Medicine
DX: S16.1XXA Strain of muscle, fascia and tendon at neck level, initial encounter (principal); R51.9 Headache, unspecified; M54.2 Cervicalgia; V43.52XA Car driver injured in collision with other type car in traffic accident, initial encounter; Y93.89 Activity, other specified; Y92.488 Other paved roadways as the place of occurrence of the external cause; Y99.8 Other external cause status
CPT/HCPCS: 70450; 72125; 99282; 99284